=== PATIENT | female | born 1980 | race Caucasian/White ===

== ENCOUNTER 2023-08-15 15:02 | Emergency (ER) | payer OTHER, SELFPAY ==
[2023-08-15 15:06] VITALS: BP 158/98; PULSE 79; RESP 16; TEMP 36.6; O2SAT 100; BMI 35.1
--- NOTE | 2023-08-15 16:02 | ED.GENADULT ---
HPI - General Adult General Date Seen: 08/15/23 Chief complaint: Psychiatric Problem/Disorder Stated complaint: Chest pain, breathing issues, sleep apnea Time Seen by Provider: 08/15/23 15:36 History of Present Illness HPI narrative: 43-year-old female presenting to the ER today with concern for anxiety, tearfulness and worried about her father for and her son, and her blood pressure. She is here with her will help supplemental lot of her history. She is tearful and very vague about a lot of her symptoms. It sounds like she has been having episodes where she gets regular breathing and sometimes stops breathing that happen a couple times a week for several weeks. Also sometimes some chest pain with these. These tend to happen when she is worrying about her family. No clear association to exertion, position, or other activity. The pain is in the left upper part of her chest. She is very worried about her father's health. He lives in [place]. He is to her stepmother. He has some sort of leukemia or bone marrow problem that requires fairly frequent blood transfusions. The patient really does not know his diagnosis, prognosis, or much detail about his problems. She is worried about him and she is worried that he might . Her mother about 3 years ago. She does not want to lose her father, too. She is also very worried about her son. He is 19 now. He has been making bad life decisions for the past several years. It sounds like he started smoking and vaping when he was under age. He dropped out of high school when he was 17 and does not have a degree. Apparently he has friends in a girlfriend who are leading him and a path that his parents disagree with that might be bad for him. They do not off how to help him get back on the right path. Both the patient and are worried about him. The patient also has high blood pressure. She takes lisinopril for it. Recently her stepmother gave her a blood pressure cuff at. She has been having readings in the 160/110 range. Her stepmother told her that her blood pressure was and a stroke range and that she was high risk for stroke and has also been stressing the patient out. Related Data Home Medications Medication Instructions Recorded Confirmed lisinopril 20 mg tablet 20 mg PO DAILY 08/15/23 08/15/23 sertraline 50 mg tablet 50 mg PO QAM 08/15/23 08/15/23 Previous Rx's Medication Instructions Recorded lorazepam 1 mg tablet (Ativan) 1 mg PO BID PRN #7 tabs 08/15/23 Allergies Allergy/AdvReac Type Severity Reaction Status Date / Time No Known Drug Allergies Allergy Verified 08/15/23 15:06 [facility] Social History Smoking Status: Never smoker How often do you have a drink containing alcohol: never AUDIT-C Alcohol total score: 0 Non-prescribed substance use: denies use Exam Narrative: Exam Narrative: Constitutional: Appears well-developed and well-nourished. Alert. Tearful and worried. supportively at her side. She is conversant but somewhat disorganized in her thinking. She has so many worries that she has difficulty even focusing on 1 worry at a time to discuss it. She even has difficulty describing this for symptoms or when they started or how often they happen. Overall, no respiratory distress, cyanosis, mottling, or diaphoresis. HENT: Head: Atraumatic. Nose: Nose normal. Mouth/Throat: Oral mucosa is clear and moist. no trismus. Pharynx normal. Tonsils symmetric. No tonsillar enlargement, erythema, or exudate. Eyes: Conjunctivae normal. EOM normal. Pupils equal, round, and reactive to light. No scleral icterus. Neck: Normal range of motion. Neck supple. No tracheal deviation present. No JVD Cardiovascular: Normal rate, regular rhythm. No gallop. No friction rub. No murmur heard. Symmetric radial and PT artery pulses Pulmonary/Chest: Effort normal. No stridor. No respiratory distress. No wheezes. No rales. No rhonchi . No tenderness. Abdominal: Soft. Bowel sounds normal. No distension. No mass. No tenderness. No rebound. No guarding. Musculoskeletal: RUE: Normal range of motion. No tenderness. No deformity LUE: Normal range of motion. No tenderness. No deformity RLE: Normal range of motion. No edema. No tenderness. No deformity LLE: Normal range of motion. No edema. No tenderness. No deformity Lymph: No cervical adenopathy. Neurological: Alert and oriented to person, place, and time. Normal strength. CN II-VII intact. No sensory deficit. GCS eye subscore is 4. GCS verbal subscore is 5. GCS motor subscore is 6. Normal coordination Skin: Skin is warm and dry. No rash noted. No pallor. Normal capillary refill. Psychiatric: Anxious, tearful. See HPI. Her thinks she is probably having a panic attack this afternoon. She has also had some thoughts of wanting to . Const: Vital Signs, click to edit/add: Vital Signs - 24 hr 08/15/23 15:06 08/15/23 17:54 Temperature 97.9 F Pulse Rate [Pulse Oximeter] 79 80 Respiratory Rate 16 Blood Pressure [Le ft Upper Arm] 158/98 H 178/105 H Pulse Oximetry 100 100 Oxygen Delivery Me thod Room Air Room Air Course Vital Signs Vital signs: Initial Vital Signs Temperature 97.9 F 08/15/23 15:06 Temperature Source Temporal Artery Scan 08/15/23 15:06 Pulse Rate 79 08/15/23 15:06 Respiratory Rate 16 08/15/23 15:06 Blood Pressure 158/98 H 08/15/23 15:06 Blood Pressure Mean 118 H 08/15/23 15:06 Blood Pressure Position Sitting 08/15/23 15:06 Pulse Oximetry 100 08/15/23 15:06 Oxygen Delivery Method Room Air 08/15/23 15:06 Vital Signs Temperature 97.9 F 08/15/23 15:06 Pulse Rate 79 08/15/23 15:06 Respiratory Rate 16 08/15/23 15:06 Blood Pressure 158/98 H 08/15/23 15:06 Pulse Oximetry 100 08/15/23 15:06 Oxygen Delivery Method Room Air 08/15/23 15:06 Temperature 97.9 F 08/15/23 15:06 Pulse Rate 80 08/15/23 17:54 Respiratory Rate 16 08/15/23 15:06 Blood Pressure 178/105 H 08/15/23 17:54 Pulse Oximetry 100 08/15/23 17:54 Oxygen Delivery Method Room Air 08/15/23 17:54 Medications Administered Medications: Discontinued Medications Generic Name Dose Route Start Last Admin Trade Name Freq PRN Reason Stop Dose Admin Aspirin 162 mg 08/15/23 16:30 08/15/23 17:28 Aspirin 81 Mg Tab.Chew PO 08/15/23 16:31 162 mg ONCE ONE Administration Lorazepam 1 mg 08/15/23 16:30 08/15/23 17:28 Lorazepam 1 Mg Tablet PO 08/15/23 16:31 1 mg ONCE ONE Administration Medical Decision Making MDM Narrative Medical decision making narrative: This patient presents for evaluation episodes of symptoms that are most consistent with panic attacks. She is very worried about multiple psychosocial issues, tearful, crying. She is also endorsing some mild chest discomfort which is probably triggered by panic. She is also worried that recently she has had some elevated blood pressure readings in the range of 160/110. She has a known history of hypertension is already on lisinopril. We did do workup. I really believe her chest pain is triggered by anxiety. It was resolved with Ativan here in the ER. Screening EKG shows no clear ischemia. Troponin is undetectable. Given the timing of onset of her pain this morning and again this afternoon, I think a single troponin is sufficient to rule out NSTEMI. History not consistent with unstable angina. No evidence for any acute renal failure. No severe headache, neurologic deficits. The workup here is negative and the patient does not have any clinical, laboratory, ecg or historical signs of end-organ dysfunction. There is no signs of hypertensive emergency or urgency. Supportive outpatient management is therefore indicated with close follow-up of primary care physician. Given data obtained here in ED, have her continue on her current meds for blood pressure therapy at this time and encouraged serial blood pressure monitoring at home to aid primary in decision making regarding hypertension. More importantly, the patient is experiencing significant psychosocial stressors and multiple panic attacks at home. She did well with oral Ativan here and feels much better, even laughing and smiling now. In terms of her panic attack she was seen by [facility]. They agree that she is safe for discharge home. They were able to set up an appointment with her will for a new doctor/psychiatrist in 2 days, on Sunday, for medication adjustment and management. She already has a therapist will continue to see her. I also encouraged her to talk to her father about his illness and find out more details. Perhaps having knowledge about what his diagnosis actually is and his prognosis will help assuage her anxiety. The is very supportive at this time. There both eager for discharge from the ER now. They have a 6:00 p.m. dinner appointment and do not want to miss it. Their discharge home he before even her screening labs are back. Prescription for Ativan provided for 7 tablets that she can use p.r.n.. Discussed benzodiazepine precautions and sedation. Also understand that this is potentially an addictive medication and probably is not a good long-term solution. Lab Data Labs: Lab Results 08/15/23 Range/Units 17:32 WBC 9.37 (4.50-11.00) K/uL RBC 5.26 H (4.00-5.20) m/uL Hgb 13.8 (12.0-16.0) gm/dL Hct 43.6 (33.0-51.0) % MCV 83 (80-100) fL MCH 26 (26-34) pg MCHC 32 (32-36) gm/dL RDW Coeff of Cyn 13.4 (11.5-15.5) % Plt Count 448 H (140-440) K/uL Neut % (Auto) 69.0 (42.0-72.0) % Lymph % (Auto) 21.9 (20-44) % Morrill % (Auto) 7.4 (0.0-11.0) % Eos % (Auto) 1.1 (0.0-7.0) % Baso % (Auto) 0.4 (0.0-3.0) % Neut # (Auto) 6.47 (1.7-7.0) K/uL Lymph # (Auto) 2.05 (0.90-2.90) K/uL Morrill # (Auto) 0.70 (0.00-0.90) K/UL Eos # (Auto) 0.10 (0.00-0.50) K/uL Baso # (Auto) 0.04 (0.00-0.30) K/uL Abs Immat Gran (auto) 0.02 (0.00-0.30) K/uL Imm/Tot Granulo (auto) 0.2 % Sodium 137 (135-149) mmol/L Potassium 4.9 (3.6-5.1) mmol/L Chloride 101 (96-114) mmol/L Carbon Dioxide 27 (20-32) mmol/L Anion Gap 9 (7-15) mEq/L BUN 15 (5-24) mg/dL Creatinine 0.6 (0.5-1.5) mg/dL Estimated Creat Clear 126.35 Estimated GFR 114 ml/min Glucose 91 (60-115) mg/dL Calcium 9.5 (8.4-10.6) mg/dL Troponin I < 0.01 L (0.01-0.04) ng/mL ECG Data Attestation: I personally reviewed and interpreted this ECG as follows: Interpretation: Normal sinus rhythm rate 70 MA 150 QRS axis normal axis. No pathologic Q-waves. ST segment/T wave: Artifact in lead V2. No ST segment elevation in lead V1, V3, V4, V5, V6, 1, 2, 3, AVR, aVL, AVF. QTc: 438 Discharge Plan Discharge Clinical Impression: Anxiety, Hypertension Patient Disposition: Home, Self-Care Condition: Stable Instructions: Hypertension (ED), Anxiety (ED) Additional Instructions: As we discussed, please follow-up with your regular doctor within 1 week to recheck for your blood pressure. If it is still elevated, please have your doctor machine adjuster leader blood pressure medications. It is important to keep her blood pressure below the range of 140/90 over the long-term to minimize your future risk for strokes, heart attacks, or other complications. To treat your anxiety, continue on your regular meds. Use the new prescription for Ativan if needed for anxiety. Please follow-up with the new doctor on Sunday for a recheck and to consider further medication changes. Use caution with Ativan because it causes drowsiness, dizziness, and sedation. Do not drive or drink alcohol within 6 hours after taking Ativan. Prescriptions: New lorazepam [Ativan] 1 mg tablet 1 mg PO BID PRNQty: 7 0RF No Action lisinopril 20 mg tablet 20 mg PO DAILY sertraline 50 mg tablet 50 mg PO QAM Follow Up/Referrals: Yoni Mendez MD [Primary Care Provider] - Stand Alone Forms: [email or web address] Info Instructions
[2023-08-15] MEDS: ASPIRIN 81 MG TAB.CHEW 162 MG PO (17:28)
[2023-08-15] MEDS: LORazepam 1 MG TABLET PO (17:28)
[2023-08-15 17:38] LABS: Basophils Absolute Auto 0.04 K/uL (0.00-0.30); Basophils Percent Auto 0.4 % (0.0-3.0); Eosinophils Percent Auto 1.1 % (0.0-7.0); Hematocrit 43.6 % (33.0-51.0); Hemoglobin* 13.8 gm/dL (12.0-16.0); Immature Granulocytes Abs Auto 0.02 K/uL (0.00-0.30); Immature Granulocytes Pct Auto 0.2 %; Lymphocytes Absolute Auto 2.05 K/uL (0.90-2.90); Lymphocytes Percent Auto 21.9 % (20-44); Mean Corpuscular HGB Conc 32 gm/dL (32-36); Mean Corpuscular Hemoglobin 26 pg (26-34); Mean Corpuscular Volume 83 fL (80-100); Monocytes Percent Auto 7.4 % (0.0-11.0); Neutrophils Absolute Auto 6.47 K/uL (1.7-7.0); Platelet Count* 448 K/uL (140-440); RDW Coefficient of Variation % 13.4 % (11.5-15.5); Red Blood Count 5.26 m/uL (4.00-5.20); White Blood Count* 9.37 K/uL (4.50-11.00)
[2023-08-15 17:49] LABS: Chloride* 101 mmol/L (96-114)
[2023-08-15 17:50] LABS: Potassium* 4.9 mmol/L (3.6-5.1); Sodium* 137 mmol/L (135-149)
[2023-08-15 17:52] LABS: Creatinine* 0.6 mg/dL (0.5-1.5); Est. Creatinine Clearance* 126.35; Estimated Glomerular Filt Rate 114 ml/min
[2023-08-15 17:53] LABS: Anion Gap 9 mEq/L (7-15); Blood Urea Nitrogen* 15 mg/dL (5-24); Calcium* 9.5 mg/dL (8.4-10.6); Carbon Dioxide* 27 mmol/L (20-32); Glucose* 91 mg/dL (60-115)
[2023-08-15 17:54] VITALS: BP 178/105; PULSE 80; O2SAT 100
--- NOTE | 2023-08-15 18:01 | ED.NURSE ---
Pt acknowledged and signed [facility] safety plan, copy of safety plan provided to pt.
[2023-08-15 18:06] LABS: Troponin I* < 0.01 ng/mL (0.01-0.04)
[2023-08-15 18:09] LABS: Slide Review Reflex No
== END 2023-08-15 18:05 | disposition home or self-care (01) ==
LOC: ED 18:04
PROVIDERS: Emergency Provider Emergency Medicine; PCP Family Medicine
DX: F41.9 Anxiety disorder, unspecified (principal); I10 Essential (primary) hypertension
CPT/HCPCS: 36415; 80048; 84484; 85025; 93005; 99284; A9270

== ENCOUNTER 2023-10-04 02:18 | Emergency (ER) | payer OTHER, SELFPAY ==
--- NOTE | 2023-10-04 02:26 | ED.GENADULT ---
HPI - General Adult General Chief complaint: Shoulder Injury/Pain Stated complaint: Left shoulder pain-Fall Time Seen by Provider: 10/04/23 02:20 History of Present Illness HPI narrative: CC: Left Shoulder Pain pt. with left shoulder pain s /p fall. pt. slid downstairs and landed on left shoulder. denies LOC, hitting head, n /v, diarrhea. gcs 15. 43 year old woman presenting to the ER ambulatory following a fall down 7 stairs. Circumstances of fall unclear but sounds like slipped or slid down 7 stairs and ended up striking her left shoulder. Denies neck or back pain. Denies striking her head or LOC. No abdominal pain or significant extremity injury. Related Data Home Medications Medication Instructions Recorded Confirmed lisinopril 20 mg tablet 20 mg PO DAILY 08/15/23 10/04/23 sertraline 50 mg tablet 50 mg PO QAM 08/15/23 10/04/23 Allergies Allergy/AdvReac Type Severity Reaction Status Date / Time No Known Drug Allergies Allergy Verified 10/04/23 02:34 [facility] Medical History (Updated 10/04/23 @ 03:34 by Rustam Faria MD) Grief reaction ?F43.21 - Adjustment disorder with depressed mood (ICD-10) Panic disorder without agoraphobia with moderate panic attacks ?F41.0 - Panic disorder [episodic paroxysmal anxiety] (ICD-10) Morbid obesity ?E66.01 - Morbid (severe) obesity due to excess calories (ICD-10) Congenital hydrocephalus ?Q03.9 - Congenital hydrocephalus, unspecified (ICD-10) Surgical History (Updated 10/04/23 @ 02:49 by Gideon Hwang RN) History of excision of pilonidal cyst ?Z98.890 - Other specified postprocedural states (ICD-10) Social History Smoking Status: Never smoker How often do you have a drink containing alcohol: never AUDIT-C Alcohol total score: 0 Non-prescribed substance use: denies use Exam Narrative: Exam Narrative: She is plaintive in apparent significant pain. favoring left arm. Cranial nerves 2 - 12 intact. GCS of 15. No motivation. Moving all extremities without difficulty other than the left arm. No pain to palpation at the elbow. Head is a traumatic. Neck supple and nontender. Back nontender. She has no pain to palpation over the clavicles or on her chest wall. Left shoulder appears to be in place without sulcus. No tenderness specifically at the AC joint. Abdomen soft and contender. There is a light abrasion at the right knee but without swelling. She's able to flex without apparent difficulty. Const: Documenting provider has reviewed patient's vital signs: yes Course Vital Signs Vital signs: Initial Vital Signs Temperature 98.0 F 10/04/23 02:31 Temperature Source Temporal Artery Scan 10/04/23 02:31 Pulse Rate 89 10/04/23 02:31 Respiratory Rate 20 10/04/23 02:31 Blood Pressure 130/84 10/04/23 02:31 Blood Pressure Mean 99 10/04/23 02:31 Blood Pressure Position Sitting 10/04/23 02:31 Pulse Oximetry 99 10/04/23 02:31 Oxygen Delivery Method Room Air 10/04/23 02:31 Vital Signs Temperature 98.0 F 10/04/23 02:31 Pulse Rate 89 10/04/23 02:31 Respiratory Rate 20 10/04/23 02:31 Blood Pressure 130/84 10/04/23 02:31 Pulse Oximetry 99 10/04/23 02:31 Oxygen Delivery Method Room Air 10/04/23 02:31 Temperature 98.0 F 10/04/23 03:39 Pulse Rate 74 10/04/23 03:39 Respiratory Rate 20 10/04/23 03:39 Blood Pressure 124/78 10/04/23 03:39 Pulse Oximetry 99 10/04/23 03:38 Oxygen Delivery Method Room Air 10/04/23 03:38 Medications Administered Medications: Discontinued Medications Generic Name Dose Route Start Last Admin Trade Name Freq PRN Reason Stop Dose Admin Ibuprofen 800 mg 10/04/23 02:31 10/04/23 02:35 Ibuprofen 400 Mg Tablet PO 10/04/23 02:32 800 mg ONCE ONE Administration Medical Decision Making MDM Narrative Medical decision making narrative: In spite of considerable discomfort I don't think will need imaging other than the left shoulder. Would not appear to need any neck or back imaging or head imaging this time. Would look for proximal humerus fracture here and monitor for evolution of other areas of pain. Discussed pain management options, and her preferences for ibuprofen at this time. x-ray of the left shoulder reviewed by me looks to show a small cortical irregularity at the greater tuberosity of the left humerus. Arm sling On reassessment is improved in pain. Seems a little relieved especially when discussed that non-operative treatment recommended at this time. Procedure(s): XR shoulder LT min 2V Accession Number(s): [id number] cc: Rustam Faria M.D.; Yoni Mendez M.D.~ Patient: RAYMON DOLL Facility:?[facility] Patient ID:?[id number] Site Patient ID:?[id number]. Site :?[id number] Study:?XRay-Shoulder Left -10/04/2023 2:50:10 AM Ordering Physician:?thomas Final Report: INDICATION: Fall on stairs, shoulder feels loose, injury TECHNIQUE: Shoulder radiograph 3 views left COMPARISON: None FINDINGS: Bone: Cortical buckling and lucency seen over the greater tuberosity, likely from a nondisplaced fracture. There is a 7 mm bone island in the glenoid. Joint: The glenohumeral joint is unremarkable. The acromioclavicular joint is unremarkable. Soft tissue: Unremarkable. The visualized hemithorax is unremarkable in appearance. No radiopaque foreign bodies are seen. IMPRESSION: 1. Cortical buckling and lucency seen over the greater tuberosity, likely from a nondisplaced fracture. See patient discharge plan for further discussion. Discharge Plan Discharge Clinical Impression: Abrasion, Fall (on) (from) other stairs and steps, initial encounter, Fracture of greater tuberosity of humerus Patient Disposition: Home w/ Parent or Adult Condition: Stable Additional Instructions: Please wear this arm sling as I think it will be helpful for comfort at a minimum. I will be asking Orthopedics to follow up with you. You can also call them to schedule at [phone]. Can take up to 800 mg of ibuprofen or up to 1000 mg of acetaminophen per dose. Alternative to the ibuprofen might be up to 500 mg naproxen 2 times daily. Would also still consider icing your shoulder 2 - 3 times daily over the next few days. Prescriptions: No Action lisinopril 20 mg tablet 20 mg PO DAILY sertraline 50 mg tablet 50 mg PO QAM Follow Up/Referrals: Yoni Mendez MD [Primary Care Provider] - Stand Alone Forms: [employer] Info Instructions
[2023-10-04 02:31] VITALS: BP 130/84; PULSE 89; RESP 20; TEMP 36.7; O2SAT 99; BMI 35.1
--- NOTE | 2023-10-04 02:31 | XR_ITS ---
Patient: RAYMON DOLL Facility:?[facility] Patient ID:?[id number] Site Patient ID:?[id number]. Site :?[id number] Study:?XRay-Shoulder Left -10/04/2023 2:50:10 AM Ordering Physician:ángel Final Report: INDICATION: Fall on stairs, shoulder feels loose, injury TECHNIQUE: Shoulder radiograph 3 views left COMPARISON: None FINDINGS: Bone: Cortical buckling and lucency seen over the greater tuberosity, likely from a nondisplaced fracture. There is a 7 mm bone island in the glenoid. Joint: The glenohumeral joint is unremarkable. The acromioclavicular joint is unremarkable. Soft tissue: Unremarkable. The visualized hemithorax is unremarkable in appearance. No radiopaque foreign bodies are seen. IMPRESSION: 1. Cortical buckling and lucency seen over the greater tuberosity, likely from a nondisplaced fracture. Dictated by Ace Lawrence MD @ 10/04/2023 3:01:34 AM Dictated by: Ace Lawrence MD @ 10/04/2023 03:01:41 Signed by:?Ace Lawrence MD @10/04/2023 3:01:41 AM (Electronic Signature)
[2023-10-04] MEDS: IBUPROFEN 400 MG TABLET 800 MG PO (02:35)
[2023-10-04 03:38] VITALS: BP 124/78; PULSE 74; RESP 20; TEMP 36.7; O2SAT 99
[2023-10-04 03:39] VITALS: BP 124/78; PULSE 74; RESP 20; TEMP 36.7
== END 2023-10-04 03:53 | disposition home or self-care (01) ==
PROVIDERS: Emergency Provider Family Medicine; PCP Family Medicine
DX: S42.255A Nondisplaced fracture of greater tuberosity of left humerus, initial encounter for closed fracture (principal); W10.9XXA Fall (on) (from) unspecified stairs and steps, initial encounter
CPT/HCPCS: 73030; 99283; 99284; A9270